=== PATIENT | female | born 1965 | race Caucasian/White ===

== ENCOUNTER → 2016-11-21 | Outpatient (CLI) | payer OTHER ==
[~2016-11-21] MED LIST: AMBIEN10 M1 PO; CIPRO500 MG PO; FOLIC ACID1 MG PO; LASIX20 MG PO; Lovenox40 MG/0.4 SC; METFORMIN500 MG PO; METHOTREXATE2.5 M1 PO; MORPHINE SULFAT60 M4 PO; OXYCODONE HCL20 M1 PO; PERCOCET 325 MG1 TA4 PO; POTASSIUM1 PDS PO; PREDNISONE5 MG PO; TIZANIDINE2 MG PO; TIZANIDINE4 MG PO; TRAZODONE100 MG PO; [UNRECOGNIZED DRUG - OTHER] PO
== END | disposition home or self-care (01) ==
LOC: ORTHO 01:53
DX: M19.072 Primary osteoarthritis, left ankle and foot (principal); M25.571 Pain in right ankle and joints of right foot; M25.572 Pain in left ankle and joints of left foot; M19.071 Primary osteoarthritis, right ankle and foot

== ENCOUNTER → 2017-06-29 | Outpatient (CLI) | payer OTHER | END | disposition home or self-care (01) | LOC: RAD 11:09 | DX: Z13.820 Encounter for screening for osteoporosis (principal); N95.9 Unspecified menopausal and perimenopausal disorder; E55.9 Vitamin D deficiency, unspecified; M06.9 Rheumatoid arthritis, unspecified ==

== ENCOUNTER → 2020-07-02 | Outpatient (CLI) | payer OTHER | END | disposition home or self-care (01) | LOC: COVID19 11:00 | PROVIDERS: ATTEND Family Medicine | DX: Z20.828 Contact with and (suspected) exposure to other viral communicable diseases (principal) ==